=== PATIENT | female | born 2000 | race Two or more races ===

== ENCOUNTER 2020-10-26 01:21 | Emergency (ER) | payer SELFPAY ==
[~2020-10-26] VITALS: Ht 154.9 cm; Wt 7.1 kg
[2020-10-26] MEDS ORDERED: ALPRAZolam 0.5 MG TABLET PO ONE (02:00)
[2020-10-26] MEDS ORDERED: ALPR0.5T PO (03:31)
--- NOTE | 2020-10-26 03:31 | PHYS DOC ---
Past Medical History Past Surgical History: No Surgical History Smoking Status: Never Smoker Alcohol Use: None General Adult EDM: Chief Complaint: ANXIETY/PANIC ATTACK HPI: HPI: Patient is a 20 year old female with past medical history of anxiety presents with the chief complaint of anxiety attack. Onset x 3 days-- feels heart racing and emotional. Denies HI or SI. Review of Systems: Review of Systems: Constitutional: Denies fever or chills. [] Eyes: Denies change in visual acuity. [] HENT: Denies nasal congestion or sore throat. [] Respiratory: Denies cough or shortness of breath. [] Cardiovascular: Denies chest pain or edema. [] GI: Denies abdominal pain, nausea, vomiting, bloody stools or diarrhea. [] : Denies dysuria. [] Musculoskeletal: Denies back pain or joint pain. [] Integument: Denies rash. [] Neurologic: Denies headache, focal weakness or sensory changes. [] Endocrine: Denies polyuria or polydipsia. [] Lymphatic: Denies swollen glands. [] Psychiatric: Denies depression positive anxiety. [] Heart Score: C/O Chest Pain: N/A Risk Factors: Risk Factors: DM, Current or recent (<one month) smoker, HTN, HLP, family history of CAD, obesity. Risk Scores: Score 0 - 3: 2.5% MACE over next 6 weeks - Discharge Home Score 4 - 6: 20.3% MACE over next 6 weeks - Admit for Clinical Observation Score 7 - 10: 72.7% MACE over next 6 weeks - Early Invasive Strategies Current Medications: Current Medications Medications (Trade) Dose Ordered Sig/Chicho Start Time Stop Time Status Last Admin Dose Admin Alprazolam (Xanax) 1 mg 1X ONCE 10/26/20 02:00 10/26/20 02:01 DC 10/26/20 01:51 1 MG Allergies: Allergies: Allergies Coded Allergies Type Severity Reaction Last Updated Verified No Known Drug Allergies 10/26/20 No Physical Exam: PE: Constitutional: Well developed, well nourished, no acute distress, non-toxic appearance. [] HENT: Normocephalic, atraumatic, bilateral external ears normal, oropharynx moist, no oral exudates, nose normal. [] Eyes: PERRLA, EOMI, conjunctiva normal, no discharge. [] Neck: Normal range of motion, no tenderness, supple, no stridor. [] Cardiovascular:Heart rate regular rhythm, no murmur [] Lungs & Thorax: Bilateral breath sounds clear to auscultation [] Abdomen: Bowel sounds normal, soft, no tenderness, no masses, no pulsatile masses. [] Skin: Warm, dry, no erythema, no rash. [] Back: No tenderness, no CVA tenderness. [] Extremities: No tenderness, no cyanosis, no clubbing, ROM intact, no edema. [] Neurologic: Alert and oriented X 3, normal motor function, normal sensory function, no focal deficits noted. [] Psychologic: Affect normal, judgement normal, mood normal. [] Current Patient Data: Vital Signs: Vital Signs Date Time Temp Pulse Resp B/P (MAP) Pulse Ox O2 Delivery O2 Flow Rate FiO2 10/26/20 01:38 98.4 82 16 145/74 100 Room Air 98.4 EKG: EKG: [] Radiology/Procedures: Radiology/Procedures: [] Course & Med Decision Making: Course & Med Decision Making Pertinent Labs and Imaging studies reviewed. (See chart for details) []Treated with xanax. Feels improved. Will discharge home on Rx. Tay Disclaimer: Tay Disclaimer: This electronic medical record was generated, in whole or in part, using a voice recognition dictation system. Departure Departure Impression: Primary Impression: Anxiety Disposition: HOME / SELF CARE / HOMELESS Condition: STABLE Patient Instructions: Anxiety and Panic Attacks Scripts Alprazolam (XANAX) 0.5 Mg Tablet 1 TAB PO DAILY PRN for ANXIETY / AGITATION, #15 TAB Prov: LOGAN FARIA DO 10/26/20 LOGAN FARIA DO Oct 26, 2020 03:31
[2020-10-26 03:38] VITALS: BP 116/59
== END 2020-10-26 04:09 | disposition home or self-care (01) ==
LOC: ER 01:21
DX: F41.9 Anxiety disorder, unspecified (principal)
CPT/HCPCS: 99283

== ENCOUNTER 2020-11-15 23:14 | Emergency (ER) | payer SELFPAY ==
[~2020-11-15] VITALS: Ht 154.9 cm; Wt 71.8 kg
[~2020-11-15 23:14] MED LIST: ALPR0.5T PO
--- NOTE | 2020-11-16 00:49 | EKG ---
[facility] [address] [place] [address] Test Date: 2020-11-15 Test Time: 23:29:53 Pat Name: MELISSA MARTINI Department: Room: Gender: F Team Primary Care Physician: : [id number] Requested By: ASHWIN TREJO Order Number: [id number] Reading MD: Measurements Intervals [place] Rate: 78 P: 32 VT: 134 QRS: 82 QRSD: 84 T: 26 QT: 380 QTc: 437 Interpretive Statements SINUS RHYTHM NORMAL ECG RI6.02 No previous ECG available for comparison
[2020-11-16 01:13] LABS: BASO # 0.1 x10^3/uL (0.0-0.2); BASO % 1 % (0-3); EOS # 0.2 x10^3/uL (0.0-0.7); EOS % 1 % (0-3); HEMATOCRIT 40.5 % (36.0-47.0); LYMPH # 3.5 x10^3/uL (1.0-4.8); LYMPH % 33 % (24-48); MEAN CORPUSCULAR HEMOGLOBIN 32 pg (25-35); MEAN CORPUSCULAR HGB CONC 35 g/dL (31-37); MEAN CORPUSCULAR VOLUME 92 fL (79-100); MONO # 0.7 x10^3/uL (0.0-1.1); MONO % 7 % (0-9); NEUT # 6.2 x10^3/uL (1.8-7.7); NEUT % 58 % (31-73); PLATELET COUNT 272 x10^3/uL (140-400); RED BLOOD COUNT 4.42 x10^6/uL (3.50-5.40); RED CELL DISTRIBUTION WIDTH 12.9 % (11.5-14.5); WHITE BLOOD COUNT 10.6 x10^3/uL (4.0-11.0)
[2020-11-16 01:24] LABS: CALCIUM 9.4 mg/dL (8.5-10.1); CREATININE 0.8 mg/dL (0.6-1.0); GFR 91.4; POTASSIUM 3.9 mmol/L (3.5-5.1)
[2020-11-16 01:30] LABS: ALBUMIN 3.9 g/dL (3.4-5.0); MAGNESIUM 1.9 mg/dL (1.8-2.4); TOTAL BILIRUBIN 0.2 mg/dL (0.2-1.0); TOTAL PROTEIN 7.7 g/dL (6.4-8.2)
[2020-11-16 01:53] LABS: BARBITURATES NEG (NEG); BENZODIAZEPINES POS (NEG); CANNABINOIDS NEG (NEG); COCAINE NEG (NEG); METHADONE NEG (NEG); OPIATES NEG (NEG); PHENCYCLIDINE NEG (NEG)
[2020-11-16 01:55] LABS: AMPHETAMINE/METHAMPHETAMINE NEG (NEG)
--- NOTE | 2020-11-16 02:14 | PHYS DOC ---
Past Medical History Past Surgical History: Other Additional Past Surgical Histo: HOLE IN HEART WOULDNT CLOSE SURGERY AT 4-5 YEARS OLD Smoking Status: Never Smoker Alcohol Use: None General Adult EDM: Chief Complaint: CHEST PAIN HPI: HPI: 20-year-old female past medical history of congenital heart disease with surgery around 4 to 5 years of age, irregular menses on medroxyprogesterone 10days/month (follows with Dr. Mckeon), and panic attacks/anxiety, presents to the ED with complaints of throbbing left sided chest pain that started 1 week ago but now has been burning in nature with associated numbness for the past hour to hour and a half. States she was recently prescribed Xanax for panic attack and took this at 8:30 PM tonight. Did have one episode of loose watery diarrhea. Denies history of tobacco, alcohol use or cocaine abuse. No known history of DVT or PE or Covid. Is not vaccinated for Covid. Operations Systems Specialist services were used-patient is Persian-speaking Review of Systems: Review of Systems: Constitutional: Denies fever or chills. [] Eyes: Denies change in visual acuity. [] HENT: Denies nasal congestion or sore throat. [] Respiratory: Denies cough or shortness of breath or hemoptysis Cardiovascular: Denies syncope or edema. [] GI: Denies abdominal pain, nausea, vomiting, or diarrhea. [] : Denies dysuria life/limb-threatening differential includes but is not limited to, thrombocytopenia, drug related adverse event, posterior epistaxis, hemorrhagic shock, DIC, life-threatening rash, arterial injury or trauma. Musculoskeletal: Denies back pain or joint pain. [] Integument: Denies rash or diaphoresis Neurologic: Denies headache, focal weakness or sensory changes. [] Endocrine: Denies polyuria or polydipsia. [] Lymphatic: Denies swollen glands. [] Psychiatric: Denies depression or anxiety. [] Heart Score: C/O Chest Pain: Yes HEART Score for Chest Pain: HEART Score for Chest Pain Response (Comments) Value History Slighlty/Non-Suspicious 0 ECG Nonspecific Repolarizatio 1 Age < 45 0 Risk Factors No Risk Factors 0 Troponin < Normal Limit 0 Total 1 Risk Factors: Risk Factors: DM, Current or recent (<one month) smoker, HTN, HLP, family history of CAD, obesity. Risk Scores: Score 0 - 3: 2.5% MACE over next 6 weeks - Discharge Home Score 4 - 6: 20.3% MACE over next 6 weeks - Admit for Clinical Observation Score 7 - 10: 72.7% MACE over next 6 weeks - Early Invasive Strategies Allergies: Allergies: Allergies Coded Allergies Type Severity Reaction Last Updated Verified No Known Drug Allergies 10/26/20 No Physical Exam: PE: Constitutional: Well developed, well nourished, no acute distress, non-toxic appearance. HENT: Normocephalic, atraumatic, Eyes: EOMI, conjunctiva normal, no discharge. Neck: Normal range of motion, supple, Cardiovascular: S1/2 present, regular rhythm Lungs & Thorax: Speaking in full sentences, bilateral equal chest rise, no tachypnea or increased work of breathing Abdomen: soft, no tenderness, Skin: Warm, dry, no erythema, no rash. [] Back: No tenderness, no CVA tenderness. [] Extremities: No tenderness, no cyanosis, Neurologic: Alert and oriented X 3, normal motor function, normal sensory function, no focal deficits noted. [] Psychologic: Affect normal, judgement normal, mood normal. [] Current Patient Data: Labs: Laboratory Tests Test 11/16/20 01:00 11/16/20 01:41 White Blood Count 10.6 x10^3/uL (4.0-11.0) Red Blood Count 4.42 x10^6/uL (3.50-5.40) Hemoglobin 14.0 g/dL (12.0-15.5) Hematocrit 40.5 % (36.0-47.0) Mean Corpuscular Volume 92 fL (79-100) Mean Corpuscular Hemoglobin 32 pg (25-35) Mean Corpuscular Hemoglobin Concent 35 g/dL (31-37) Red Cell Distribution Width 12.9 % (11.5-14.5) Platelet Count 272 x10^3/uL (140-400) Neutrophils (%) (Auto) 58 % (31-73) Lymphocytes (%) (Auto) 33 % (24-48) Monocytes (%) (Auto) 7 % (0-9) Eosinophils (%) (Auto) 1 % (0-3) Basophils (%) (Auto) 1 % (0-3) Neutrophils # (Auto) 6.2 x10^3/uL (1.8-7.7) Lymphocytes # (Auto) 3.5 x10^3/uL (1.0-4.8) Monocytes # (Auto) 0.7 x10^3/uL (0.0-1.1) Eosinophils # (Auto) 0.2 x10^3/uL (0.0-0.7) Basophils # (Auto) 0.1 x10^3/uL (0.0-0.2) D-Dimer (Radha) < 0.27 ug/mlFEU Sodium Level 140 mmol/L (136-145) Potassium Level 3.9 mmol/L (3.5-5.1) Chloride Level 103 mmol/L (98-107) Carbon Dioxide Level 27 mmol/L (21-32) Anion Gap 10 (6-14) Blood Urea Nitrogen 9 mg/dL (7-20) Creatinine 0.8 mg/dL (0.6-1.0) Estimated GFR (Cockcroft-Gault) 91.4 BUN/Creatinine Ratio 11 (6-20) Glucose Level 90 mg/dL (70-99) Calcium Level 9.4 mg/dL (8.5-10.1) Magnesium Level 1.9 mg/dL (1.8-2.4) Total Bilirubin 0.2 mg/dL (0.2-1.0) Aspartate Amino Transferase (AST) 14 U/L (15-37) L Alanine Aminotransferase (ALT) 17 U/L (14-59) Alkaline Phosphatase 66 U/L (46-116) Troponin I Quantitative 0.025 ng/mL (0.000-0.055) Total Protein 7.7 g/dL (6.4-8.2) Albumin 3.9 g/dL (3.4-5.0) Albumin/Globulin Ratio 1.0 (1.0-1.7) Lipase 88 U/L (73-393) Serum Test, Qualitative Positive (NEG) POC Urine HCG, Qualitative Hcg negative (Negative) Laboratory Tests 11/16/20 01:00 Laboratory Tests 11/16/20 01:00 Vital Signs: Vital Signs Date Time Temp Pulse Resp B/P (MAP) Pulse Ox O2 Delivery O2 Flow Rate FiO2 11/15/20 23:50 89 20 122/64 (78) 100 Room Air EKG: EKG: Sinus rhythm 70 bpm, no axis deviation, normal intervals, T wave inversion V2, no ST elevations or ST depressions S1Q3 present Radiology/Procedures: Radiology/Procedures: []IMAGING REPORT Signed PATIENT: WARD MARTINI: [id number] : 2000 LOCATION: ER AGE: 20 SEX: F EXAM STATUS: DEP ER ORD. PHYSICIAN: ASHWIN TREJO DO REASON: cp PROCEDURE: CHEST PA & LATERAL EXAM: CHEST 2 VIEWS. HISTORY: Chest pain. COMPARISON: None. FINDINGS: Frontal and lateral views of the chest are obtained. There is a mild airspace infiltrate in the right base. There is no pneumothorax or pleural effusion. The heart is not enlarged. IMPRESSION: 1. Mild right basilar infiltrate. Electronically signed by: Moise Carter MD (11/16/2020 6:10 AM) [facility] DICTATED and SIGNED BY: KATHRYN CARTER MD DATE: 11/16/20 [id number] 0 Course & Med Decision Making: Course & Med Decision Making Pertinent Labs and Imaging studies reviewed. (See chart for details) Concern for atypical chest pain that has been intermittent for the past week. Unable to PERC out. D-dimer within normal limits. EKG with no ischemia. Chest x- ray concerning for mild right basilar infiltrate. Troponin within normal limits. Will discharge home with strict ED return precautions were given for logic deficits, syncope, chest pressure or tightness, dyspnea or hemoptysis. Encouraged urgent outpatient follow-up with PMD and cardiology for nonemergent outpatient evaluation. Life-threatening processes were considered but are low suspicion at this time, given history, physical exam and ED workup. Pt was educated on all prescription medications and adverse effects. All patient's questions were answered and pt was stable at time of discharge. Life/limb-threatening differential includes but is not limited to, acute myocardial infarction, aortic dissection, congestive heart failure, esophageal injury including rupture, surgical abdomen, arrhythmia, cardiomyopathy, myocarditis, pericarditis, peptic ulcer disease, pneumomediastinum, pneumonia, pneumothorax, pulmonary embolus, unstable angina, rib fracture, contusion, pericardial tamponade or effusion, traumatic injury including mediastinal hemorrhage or hematoma, or pulmonary contusion. I have spoken with the patient and/or caregivers. I explained the patient's condition, diagnoses and treatment plan based on the information available to me at this time. I have answered the patient and/or caregiver's questions and addressed any concerns. The patient and/or caregivers have a good understanding of patient's diagnosis, condition and treatment plan as can be expected at this point. Vital signs have been stable. Patient's condition is stable and appropriate for discharge from the emergency department. Patient will pursue further outpatient evaluation with primary care physician or other designated or consulting physician as outlined in the discharge instructions. The patient and/or caregivers are agreeable to this plan of care and follow-up instructions have been explained in detail. The patient and/or ca regivers have received these instructions in written form and have expressed an understanding of the discharge instructions. The patient and/or caregivers are aware that any significant change of condition or worsening of symptoms should prompt immediate return to this or the closest emergency department or call to 911. Tay Disclaimer: Tay Disclaimer: This electronic medical record was generated, in whole or in part, using a voice recognition dictation system. Departure Departure Impression: Primary Impression: Atypical chest pain Disposition: 01 HOME / SELF CARE / HOMELESS Condition: STABLE Referrals: NO PCP (PCP) Follow-up with your primary care physician in 24 to 48 hours OR FOLLOW UP WITH FAMILY MEDICINE: [address] [facility], [facility] [address] [place] [address] Patient Instructions: Chest Pain (Nonspecific) Additional Instructions: FOLLOW UP WITH CARDIOLOGY: FOR DEFINITIVE MANAGEMENT/of atypical chest pain [facility] [address] [facility] [address] [place] [address] EMERGENCY DEPARTMENT GENERAL DISCHARGE INSTRUCTIONS Thank you for coming to [facility] (ED) today and trusting us with you care. We trust that you had a positive experience in our Emergency Department. If you wish to speak to the department management, you may call the Director at [phone]. YOUR FOLLOW UP INSTRUCTIONS ARE FOLLOWS: 1. Do you have a private Doctor? If you do not have a private doctor, please ask for a resource list of physicians or clinics that may be able to assist you with follow up care. ADDITIONAL INSTRUCTIONS AND INFORMATION: 1. Your care today has been supervised by a physician who is specially trained in emergency care. Many problems require more than one evaluation for a complete diagnosis and treatment. We recommend that you schedule your follow up appointment as recommended to ensure complete treatment of you illness or injury. If you are unable to obtain follow up care and continue to have a problem, or if your condition worsens, we recommend that you return to the ED. 2. We are not able to safely determine your condition over the phone nor are we able to give sound medical advice over the phone. For these safety reasons, if you call for medical advice we will ask you to come to the ED for further evaluation. 3. If you have any questions regarding these discharge instructions please call the ED at [phone]. SAFETY INFORMATION: In the interest of safety, wellness, and injury prevention; we encourage you to wear your sealbelt, if you smoke; quite smoking, and we encourage family to use a pr otective helmet for bicycling and other sporting events that present an increased risk for head injury. IF YOUR SYMPTOMS WORSEN OR NEW SYMPTOMS DEVELOP, OR YOU HAVE CONCERNS ABOUT YOUR CONDITION; OR IF YOUR CONDITION WORSENS WHILE YOU ARE WAITING FOR YOUR FOLLOW UP APPOINTMENT; EITHER CONTACT YOUR PRIMARY CARE DOCTOR, THE PHYSICIAN WHOSE NAME AND NUMBER YOU WERE GIVEN, OR RETURN TO THE ED IMMEDIATELY. Scripts Azithromycin (ZITHROMAX) 250 Mg Tablet 1 PKG PO UD, #6 TAB Prov: ASHWIN TREJO DO 11/17/20 ASHWIN TREJO DO Nov 16, 2020 02:14
[2020-11-16 04:30] VITALS: BP 110/61
--- NOTE | 2020-11-16 06:12 | RAD ---
EXAM: CHEST 2 VIEWS. HISTORY: Chest pain. COMPARISON: None. FINDINGS: Frontal and lateral views of the chest are obtained. There is a mild airspace infiltrate in the right base. There is no pneumothorax or pleural effusion. The heart is not enlarged. IMPRESSION: 1. Mild right basilar infiltrate. Electronically signed by: Moise Carter MD (11/16/2020 6:10 AM) [facility]
[2020-11-17] MEDS ORDERED: AZIT250T PO (05:40)
== END 2020-11-16 04:48 | disposition home or self-care (01) ==
LOC: ER 23:14
DX: R07.89 Other chest pain (principal); R20.0 Anesthesia of skin; R19.7 Diarrhea, unspecified
CPT/HCPCS: 36415; 71046; 80053; 80307; 81025; 83690; 83735; 84484; 84702; 85025; 85379; 93005; 99285-25

== ENCOUNTER 2020-11-22 20:46 | Emergency (ER) | payer SELFPAY ==
[~2020-11-22] VITALS: Ht 154.9 cm; Wt 71.8 kg
[~2020-11-22 20:46] MED LIST changes: +AZIT250T PO
[2020-11-22] MEDS ORDERED: IV NORMAL SALINE 1000ML BAG 1,000 ML IV ONE (21:30)
--- NOTE | 2020-11-22 21:34 | RAD ---
XR CHEST 1V History: Anxious chest pain and palpitations. Comparison: 11/16/2020. Technique: AP radiograph of the chest. Findings: The lungs are adequately and symmetrically inflated. No airspace consolidation, pleural effusion or p neumothorax. The cardiomediastinal silhouette and pulmonary vasculature are within normal limits. No acute osseous abnormality. Soft tissues are unremarkable. Impression: 1. No acute cardiopulmonary process. Electronically signed by: Gareth Crews MD (11/22/2020 9:32 PM) [facility]
--- NOTE | 2020-11-22 21:36 | PHYS DOC ---
Past Medical History Past Surgical History: Other Additional Past Surgical Histo: HOLE IN HEART WOULDNT CLOSED SURGERY AT 4-5 YEARS OLD Smoking Status: Never Smoker Alcohol Use: None General Adult EDM: Chief Complaint: ANXIETY/PANIC ATTACK HPI: HPI: Patient is a 20 year old female presents with a past medical history of irregular menstrual cycles and anxiety presents for the evaluation of hot fasteners, difficulty swallowing, headache, palpitations, and shortness of breath. Patient states symptoms have been ongoing for 2 days progressive becoming worse. Symptoms worse prior to arrival. Patient was recently placed on Lexapro states she has taken 3 doses. Patient was also prescribed Xanax but refused to take at onset of symptoms prior to arrival. Patient is on medroxyprogesterone for her irregular menstrual cycles. Patient states she has been out of these medications for the last 3 days. Patient was evaluated in the emergency department approximately 5 days ago's with similar symptoms. Cardiac work up was negative. Xray per radiologist infiltrate. Review of Systems: Review of Systems: Review of systems: Constitutional symptoms- No fever, no chills. Eyes- No Discharge, No Visual Loss Respiratory symptoms- Positive shortness of breath, No wheezing, No Dyspnea on Exertion Cardiovascular Systems; Positive chest pain, Positiveo Palpitations, No syncope Gastrointestinal symptoms: NO abdominal pain, no nausea, no vomiting or diarrhea. Genitourinary symptoms: No dysuria. Musculoskeletal symptoms: No back pain No extremity pain. NEUROLOGICAL Symptoms: Positive headache, no generalized weakness; No focal Weakness Skin: No rash. Heart Score: C/O Chest Pain: N/A Risk Factors: Risk Factors: DM, Current or recent (<one month) smoker, HTN, HLP, family history of CAD, obesity. Risk Scores: Score 0 - 3: 2.5% MACE over next 6 weeks - Discharge Home Score 4 - 6: 20.3% MACE over next 6 weeks - Admit for Clinical Observation Score 7 - 10: 72.7% MACE over next 6 weeks - Early Invasive Strategies Current Medications: Current Medications Medications (Trade) Dose Ordered Sig/Chicho Start Time Stop Time Status Last Admin Dose Admin Lorazepam (Ativan Inj) 1 mg 1X ONCE 11/22/20 21:30 11/22/20 21:31 DC Sodium Chloride 1,000 ml @ 1,000 mls/hr 1X ONCE 11/22/20 21:30 11/22/20 22:29 Allergies: Allergies: Allergies Coded Allergies Type Severity Reaction Last Updated Verified No Known Drug Allergies 10/26/20 No Physical Exam: PE: General: alert, no acute distress. Skin: warm, dry and intact, no erythema, no rash. HENT: bilateral external ears normal, oropharynx moist, nose normal. Head:: Normocephalic, atraumatic. Neck: Trachea midline. Eyes: EOMI, Normal conjunctiva, No drainage CARDIOVASCULAR: Tachycardia RESPIRATORY: No respiratory distress Back: Full range of motion. MUSCULOSKELETAL: Full range of motion of bilateral upper and lower extremities. GASTROINTESTINAL: Abdomen soft without rebound or guarding. NEUROLOGICAL: Alert and noted to person, place and time. No neurological deficits observed Psychiatric: Cooperative. Normal judgment Current Patient Data: Vital Signs: Vital Signs Date Time Temp Pulse Resp B/P (MAP) Pulse Ox O2 Delivery O2 Flow Rate FiO2 11/22/20 20:50 98.5 92 20 121/80 (77) 98 Room Air 98.5 EKG: EKG: Performed at 2129 Rate 96 Normal sinus rhythm No ST elevation No ST depression No acute GA [] Radiology/Procedures: Radiology/Procedures: [] Impression: Chest x-ray no focal infiltrate no abnormality Course & Med Decision Making: Course & Med Decision Making Pertinent Labs and Imaging studies reviewed. (See chart for details) [] Dragon Disclaimer: Tay Disclaimer: This electronic medical record was generated, in whole or in part, using a voice recognition dictation system. Departure Departure Impression: Primary Impression: Panic attack Disposition: HOME / SELF CARE / HOMELESS Condition: STABLE Referrals: NO PCP (PCP) Patient Instructions: Anxiety and Panic Attacks LOGAN FARIA DO Nov 22, 2020 21:36
[2020-11-22 21:41] LABS: BASO # 0.1 x10^3/uL (0.0-0.2); BASO % 1 % (0-3); EOS # 0.1 x10^3/uL (0.0-0.7); EOS % 1 % (0-3); HEMATOCRIT 38.9 % (36.0-47.0); HEMOGLOBIN 13.6 g/dL (12.0-15.5); LYMPH # 2.9 x10^3/uL (1.0-4.8); LYMPH % 31 % (24-48); MEAN CORPUSCULAR HEMOGLOBIN 32 pg (25-35); MEAN CORPUSCULAR HGB CONC 35 g/dL (31-37); MEAN CORPUSCULAR VOLUME 90 fL (79-100); MONO # 0.8 x10^3/uL (0.0-1.1); MONO % 8 % (0-9); NEUT # 5.8 x10^3/uL (1.8-7.7); NEUT % 60 % (31-73); PLATELET COUNT 285 x10^3/uL (140-400); RED BLOOD COUNT 4.32 x10^6/uL (3.50-5.40); RED CELL DISTRIBUTION WIDTH 12.9 % (11.5-14.5); WHITE BLOOD COUNT 9.6 x10^3/uL (4.0-11.0)
[2020-11-22 21:52] LABS: CALCIUM 9.4 mg/dL (8.5-10.1); GFR 70.7; POTASSIUM 3.7 mmol/L (3.5-5.1)
[2020-11-22 21:58] LABS: ALBUMIN/GLOBULIN RATIO 1.1 (1.0-1.7); TOTAL BILIRUBIN 0.1 mg/dL (0.2-1.0); TOTAL PROTEIN 7.5 g/dL (6.4-8.2)
--- NOTE | 2020-11-22 22:03 | EKG ---
[facility] [address] [place] [address] Test Date: 2020-11-22 Test Time: 21:29:37 Pat Name: MELISSA MARTINI Department: Room: Gender: F Data Solutions Architect: : 2000 Requested By: LOGAN FARIA Order Number: [id number] Reading MD: Measurements Intervals [place] Rate: 96 P: 43 AR: 122 QRS: 79 QRSD: 88 T: 26 QT: 350 QTc: 449 Interpretive Statements SINUS RHYTHM NORMAL ECG RI6.01 Compared to ECG 11/22/2020 21:28:02 Sinus tachycardia no longer present T-wave abnormality no longer present Possible ischemia no longer present
[2020-11-22 23:08] VITALS: BP 136/73
== END 2020-11-22 23:21 | disposition home or self-care (01) ==
LOC: ER 20:46
DX: F41.0 Panic disorder [episodic paroxysmal anxiety] (principal)
CPT/HCPCS: 36415; 71045; 80053; 84484; 85025; 85379; 93005; 96361; 96374; 99285; J2060; J7030